=== PATIENT | female | born 1955 | race Two or more races ===

== ENCOUNTER 2016-11-06 21:15 | Inpatient (IN) | payer OTHER ==
--- NOTE | 2016-11-06 21:30 | PDOC ---
Rapid Medical Evaluation Time Seen by Provider: 11/06/16 21:27 Medical Evaluation: Allergies Allergy/AdvReac Type Severity Reaction Status Date / Time No Known Allergies Allergy Verified 01/01/16 15:12 11/06/16 21:27 I have performed a brief in-person evaluation of this patient. The patient presents with a chief complaint of: rt inguinal hernia, no fever, nausea, dysuria, difficulty w/ BM Pertinent physical exam findings: no skin discoloration noted I have ordered the following: ua The patient will be seen in the main ED.
[2016-11-06] MEDS ORDERED: morphine CARPU-JECT 4 MG/1 ML DISP.SYRIN IVPUSH ONE (21:59)
[2016-11-06] MEDS ORDERED: SODIUM CHLORIDE 1,000 ML IV STA (21:59)
[2016-11-06] MEDS ORDERED: morphine CARPU-JECT 4 MG/1 ML DISP.SYRIN ONE (22:16)
[2016-11-06 22:20] LABS: EOSINOPHIL 3.9 % (0-4.5); MCH 26.5 pg (25.7-33.7); MCHC 31.9 g/dl (32.0-36.0); MEAN CELL VOLUME 83.2 fl (80-96); MEAN PLT VOLUME 8.5 fl (7.5-11.1); NEUTROPHILS 43.8 % (42.8-82.8); PLATELET COUNT 339 K/MM3 (134-434); RDW 15.3 % (11.6-15.6); WHITE BLOOD COUNT 6.9 K/mm3 (4.0-10.0)
[2016-11-06 22:21] LABS: URINE APPEARANCE CLEAR; URINE BILIRUBIN NEGATIVE (NEGATIVE); URINE BLOOD NEGATIVE (NEGATIVE); URINE COLOR STRAW; URINE GLUCOSE (UA) NEGATIVE (NEGATIVE); URINE KETONE NEGATIVE (NEGATIVE); URINE LEUK ESTERASE NEGATIVE (NEGATIVE); URINE NITRITE NEGATIVE (NEGATIVE); URINE PROTEIN NEGATIVE (NEGATIVE); URINE UROBILINOGEN NEGATIVE E.U./dl (0.2-1.0)
--- NOTE | 2016-11-06 23:21 | PDOC ---
History of Present Illness - General History Source: Patient, Old Records Exam Limitations: No Limitations - History of Present Illness Initial Comments: 11/06/16 23:22 60-year-old female with past medical history of thyroid disorder, borderline diabetes presents with right lower quadrant pain. She reported that the pain is constant started 3 hours ago but no associated nausea, vomiting, diarrhea, dysuria. Differential includes acute appendicitis versus hernia versus cystitis. We'll obtain labs, CAT scan a urinalysis and reassess. <Андрей Schmidt - Last Filed: 11/07/16 01:16> - General History Source: Patient Exam Limitations: No Limitations <Art Dominique - Last Filed: 11/07/16 01:42> - General Chief Complaint: Pain Stated Complaint: ABD PAIN Time Seen by Provider: 11/06/16 21:27 Past History <Андрей Schmidt - Last Filed: 11/07/16 01:16> - Past Medical History Anemia: No Asthma: No Cancer: No Cardiac Disorders: No CVA: No COPD: No CHF: No Dementia: No Diabetes: Yes GI Disorders: No Disorders: No HTN: No Hypercholesterolemia: No Liver Disease: No Seizures: No Thyroid Disease: Yes (hypo) - Surgical History Abdominal Surgery: Yes (GASTRIC BYPASS) Appendectomy: No Cardiac Surgery: No Cholecystectomy: No Lung Surgery: No Neurologic Surgery: No Orthopedic Surgery: No - Immunization History Immunization Up to Date: Yes - Psycho/Social/Smoking Cessation Hx Anxiety: No Suicidal Ideation: No Smoking History: Never smoked Have you smoked in the past 12 months: No Information on smoking cessation initiated: No Hx Alcohol Use: No Drug/Substance Use Hx: No Substance Use Type: None Hx Substance Use Treatment: No <Art Dominique - Last Filed: 11/07/16 01:42> - Past Medical History Allergies/Adverse Reactions: Allergies Allergy/AdvReac Type Severity Reaction Status Date / Time No Known Allergies Allergy Verified 11/06/16 21:31 Home Medications: Ambulatory Orders Levothyroxine [Synthroid -] 25 mcg PO DAILY 01/01/16 Review of Systems - Review of Systems Able to Perform ROS?: Yes Comments:: 11/06/16 23:23 GENERAL/CONSTITUTIONAL: No fever or chills. No weakness. HEAD, EYES, EARS, NOSE AND THROAT: No change in vision. No ear pain or discharge. No sore throat. CARDIOVASCULAR: No chest pain or shortness of breath. RESPIRATORY: No cough, wheezing, or hemoptysis. GASTROINTESTINAL: No nausea, vomiting, diarrhea or constipation. GENITOURINARY: No dysuria, frequency, or change in urination. MUSCULOSKELETAL: No joint or muscle swelling or pain. No neck or back pain. SKIN: No rash NEUROLOGIC: No headache, vertigo, loss of consciousness, or change in strength/ sensation. ENDOCRINE: No increased thirst. No abnormal weight change. HEMATOLOGIC/LYMPHATIC: No anemia, easy bleeding, or history of blood clots. ALLERGIC/IMMUNOLOGIC: No hives or skin allergy. <Андрей Schmidt - Last Filed: 11/07/16 01:16> *Physical Exam - Vital Signs Last Vital Signs Temp Pulse Resp BP Pulse Ox 97.9 F 71 18 158/89 100 11/06/16 21:28 11/06/16 21:28 11/06/16 21:28 11/06/16 21:28 11/06/16 21:28 - Physical Exam Comments: 11/06/16 23:23 GENERAL: Awake, alert, and fully oriented, in no acute distress HEAD: No signs of trauma EYES: PERRLA, EOMI, sclera anicteric, conjunctiva clear ENT: Auricles normal inspection, hearing grossly normal, nares patent, oropharynx clear without exudates. Moist mucosa NECK: Normal ROM, supple, no lymphadenopathy, JVD, or masses LUNGS: Breath sounds equal, clear to auscultation bilaterally. No wheezes, and no crackles HEART: Regular rate and rhythm, normal S1 and S2, no murmurs, rubs or gallops ABDOMEN: (+) tenderness to the right lower quadrant. Soft, normoactive bowel sounds. No guarding, no rebound. No masses EXTREMITIES: Normal range of motion, no edema. No clubbing or cyanosis. No cords, erythema, or tenderness NEUROLOGICAL: Cranial nerves II through XII grossly intact. Normal speech, normal gait SKIN: Warm, Dry, normal turgor, no rashes or lesions noted. <Андрей Schmidt - Last Filed: 11/07/16 01:16> - Vital Signs Last Vital Signs Temp Pulse Resp BP Pulse Ox 97.9 F 71 18 158/89 100 11/06/16 21:28 11/06/16 21:28 11/06/16 21:28 11/06/16 21:28 11/06/16 21:28 <Art Dominique - Last Filed: 11/07/16 01:42> ED Treatment Course - LABORATORY CBC & Chemistry Diagram: 11/06/16 23:12 11/06/16 23:12 - ADDITIONAL ORDERS Additional order review: Laboratory Results 11/06/16 11/06/16 11/06/16 22:39 22:00 22:00 Sodium Cancelled Potassium Cancelled Chloride Cancelled Carbon Dioxide Cancelled Anion Gap Cancelled BUN Cancelled Creatinine Cancelled Creat Clearance w eGFR Cancelled Random Glucose Cancelled Calcium Cancelled Total Bilirubin Cancelled AST Cancelled ALT Cancelled Alkaline Phosphatase Cancelled Total Protein Cancelled Albumin Cancelled Lipase Cancelled Serum , Qual Cancelled Urine Color Straw Urine Appearance Clear Urine pH 6.0 Ur Specific [place] 1.013 Urine Protein Negative Urine Glucose (UA) Negative Urine Ketones Negative Urine Blood Negative Urine Nitrite Negative Urine Bilirubin Negative Urine Urobilinogen Negative Ur Leukocyte Esterase Negative 11/06/16 22:00 RBC 4.44 MCV 83.2 MCHC 31.9 L RDW 15.3 MPV 8.5 Neutrophils % 43.8 D Lymphocytes % 41.6 H D Monocytes % 9.7 Eosinophils % 3.9 D Basophils % 1.0 - RADIOLOGY Radiograph Interpretation: 11/07/16 01:[address] results reviewed. Positive for high grade small bowel obstruction. The source for the small bowel obstruction is the right inguinal hernia. - Medications Given in the ED: ED Medications Discontinued Medications Generic Name Dose Route Start Last Admin Trade Name Freq PRN Reason Stop Dose Admin Sodium Chloride 1,000 mls @ 1,000 mls/hr 11/06/16 21:59 11/06/16 22:26 Normal Saline - IV 11/06/16 22:58 1,000 mls/hr ASDIR STA Administration Morphine Sulfate 4 mg 11/06/16 21:59 11/06/16 22:26 Morphine Injection - IVPUSH 11/06/16 22:00 4 mg ONCE ONE Administration <Андрей Schmidt - Last Filed: 11/07/16 01:16> - LABORATORY CBC & Chemistry Diagram: 11/06/16 23:12 11/06/16 23:12 - ADDITIONAL ORDERS Additional order review: Laboratory Results 11/06/16 11/06/16 11/06/16 22:39 22:00 22:00 Sodium Cancelled Potassium Cancelled Chloride Cancelled Carbon Dioxide Cancelled Anion Gap Cancelled BUN Cancelled Creatinine Cancelled Creat Clearance w eGFR Cancelled Random Glucose Cancelled Calcium Cancelled Total Bilirubin Cancelled AST Cancelled ALT Cancelled Alkaline Phosphatase Cancelled Total Protein Cancelled Albumin Cancelled Lipase Cancelled Serum , Qual Cancelled Urine Color Straw Urine Appearance Clear Urine pH 6.0 Ur Specific [place] 1.013 Urine Protein Negative Urine Glucose (UA) Negative Urine Ketones Negative Urine Blood Negative Urine Nitrite Negative Urine Bilirubin Negative Urine Urobilinogen Negative Ur Leukocyte Esterase Negative 11/06/16 22:00 RBC 4.44 MCV 83.2 MCHC 31.9 L RDW 15.3 MPV 8.5 Neutrophils % 43.8 D Lymphocytes % 41.6 H D Monocytes % 9.7 Eosinophils % 3.9 D Basophils % 1.0 - RADIOLOGY Radiology Studies Ordered: Category Date Time Status ABDOMEN & PELVIS CT WITH CONTR [CT] Stat CT Scan 11/06/16 21:59 Ordered - Medications Given in the ED: ED Medications Discontinued Medications Generic Name Dose Route Start Last Admin Trade Name Freq PRN Reason Stop Dose Admin Sodium Chloride 1,000 mls @ 1,000 mls/hr 11/06/16 21:59 11/06/16 22:26 Normal Saline - IV 11/06/16 22:58 1,000 mls/hr ASDIR STA Administration Morphine Sulfate 4 mg 11/06/16 21:59 11/06/16 22:26 Morphine Injection - IVPUSH 11/06/16 22:00 4 mg ONCE ONE Administration <Art Dominique - Last Filed: 11/07/16 01:42> Medical Decision Making - Medical Decision Making 11/06/16 23:19 A portion of this note was documented by scribe services under my direction. I have reviewed the details of the note, within reason, and agree with the documentation with the following case summary and management plan written by me. Patient treated in the ED. Nursing notes are reviewed and incorporated into the medical decision-making. Vital signs reviewed. Peripheral IV access obtained by the nurse, laboratory studies are drawn and sent, reviewed and interpreted by myself. Vital Signs Temp Pulse Resp BP Pulse Ox 97.9 F 71 18 158/89 100 11/06/16 21:28 03/02/17 21:28 11/06/16 21:28 11/06/16 21:28 11/06/16 21:28 60-year-old female with past medical history of thyroid disorder, borderline diabetes presents with right lower quadrant pain. She reported that the pain is constant started 3 hours ago but no associated nausea, vomiting, diarrhea, dysuria. Differential includes acute appendicitis versus hernia versus cystitis. We'll obtain labs, CAT scan a urinalysis and reassess. 11/07/16 01:10 CBC, BMP 11/06/16 23:12 11/06/16 23:12 CMP Sodium 141 mmol/L (136-145) 11/06/16 23:12 Potassium 4.3 mmol/L (3.5-5.1) 11/06/16 23:12 Chloride 105 mmol/L (98-107) 11/06/16 23:12 Carbon Dioxide 26 mmol/L (21-32) 11/06/16 23:12 Anion Gap 10 (8-16) 11/06/16 23:12 BUN 19 mg/dL (7-18) H 11/06/16 23:12 Creatinine 0.8 mg/dL (0.55-1.02) D 11/06/16 23:12 Creat Clearance w eGFR > 60 (>60) 11/06/16 23:12 Random Glucose 90 mg/dL (74-106) 11/06/16 23:12 Calcium 9.0 mg/dL (8.5-10.1) 11/06/16 23:12 Total Bilirubin 0.5 mg/dL (0.2-1.0) 11/06/16 23:12 AST 49 U/L (15-37) H D 11/06/16 23:12 ALT 34 U/L (12-78) D 11/06/16 23:12 Alkaline Phosphatase 115 U/L (45-117) 11/06/16 23:12 Total Protein 6.9 g/dl (6.4-8.2) 11/06/16 23:12 Albumin 3.9 g/dl (3.4-5.0) 11/06/16 23:12 Lipase 191 U/L (73-393) 11/06/16 23:12 Serum , Qual Negative 11/07/16 00:08 Urine Test Results Urine Color Straw 11/06/16 22:00 Urine Appearance Clear 11/06/16 22:00 Urine pH 6.0 (5.0-8.0) 11/06/16 22:00 Ur Specific [place] 1.013 (1.001-1.035) 11/06/16 22:00 Urine Protein Negative (NEGATIVE) 11/06/16 22:00 Urine Glucose (UA) Negative (NEGATIVE) 11/06/16 22:00 Urine Ketones Negative (NEGATIVE) 11/06/16 22:00 Urine Blood Negative (NEGATIVE) 11/06/16 22:00 Urine Nitrite Negative (NEGATIVE) 11/06/16 22:00 Urine Bilirubin Negative (NEGATIVE) 11/06/16 22:00 Ur Leukocyte Esterase Negative (NEGATIVE) 11/06/16 22:00 CT results reviewed. Positive for high grade small bowel obstruction. The source for the small bowel obstruction is the right inguinal hernia. Patient reports that she has a history of right inguinal hernia that she would reduce on her own at home. I had attempted a reduction. On my first attempt, it feels that the inguinal hernia was reduced. Given the CT scan however, will observe the patient in the hospital. 11/07/16 01:[address] Varghese. Pt accepted for med/surg observation. <Art Dominique - Last Filed: 11/07/16 01:42> *DC/Admit/Observation/Transfer - Attestations Scribe Attestion: 11/06/16 23:23 Documentation prepared by Андрей Schmidt, acting as medical dir for Art Dominique MD. <Андрей Schmidt - Last Filed: 11/07/16 01:16> - Discharge Dispostion Admit: Yes <Art Dominique - Last Filed: 11/07/16 01:42> Diagnosis at time of Disposition: Inguinal hernia of right side with obstruction - Discharge Dispostion Condition at time of disposition: Stable - Referrals Referrals: Aron Culp [Primary Care Provider] -
[2016-11-06 23:24] LABS: BASOPHIL 0.6 % (0-2.0); EOSINOPHIL 2.8 % (0-4.5); MCH 26.8 pg (25.7-33.7); MCHC 32.3 g/dl (32.0-36.0); MEAN CELL VOLUME 82.8 fl (80-96); MEAN PLT VOLUME 8.3 fl (7.5-11.1); NEUTROPHILS 53.9 % (42.8-82.8); PLATELET COUNT 292 K/MM3 (134-434); RDW 14.7 % (11.6-15.6); WHITE BLOOD COUNT 7.3 K/mm3 (4.0-10.0)
[2016-11-07 00:03] LABS: ALBUMIN 3.9 g/dl (3.4-5.0); ALK PHOS 115 U/L (45-117); ANION GAP 10 (8-16); BILIRUBIN,TOTAL 0.5 mg/dL (0.2-1.0); CO2 26 mmol/L (21-32); CREATININE 0.8 mg/dL (0.55-1.02); GLUCOSE,RANDOM 90 mg/dL (74-106); SGOT/AST 49 U/L (15-37); SGPT/ALT 34 U/L (12-78); TOT PROT 6.9 g/dl (6.4-8.2)
[2016-11-07] MEDS ORDERED: morphine CARPU-JECT 4 MG/1 ML DISP.SYRIN IVPUSH ONE (01:06)
[2016-11-07] MEDS ORDERED: morphine CARPU-JECT 4 MG/1 ML DISP.SYRIN ONE (01:11)
--- NOTE | 2016-11-07 02:13 | PN ---
<Kaitlyn Varghese - Last Filed: 11/07/16 02:11> Teaching Attending Note Name of Resident: Dino Hammond <Aida Yates - Last Filed: 11/07/16 04:53> Teaching Attending Note ATTENDING PHYSICIAN STATEMENT I saw and evaluated the patient. I reviewed the resident's note and discussed the case with the resident. I agree with the resident's findings and plan as documented. SUBJECTIVE: The patient is a 60 yo F with a PMHx of thyroid disorder, borderline diabetes, gastric bypass who presents with RLQ pain s/p inguinal hernia. Patient reports her abdominal pain has occurred multiple times in the past and is able to reduce it. However, today upon leaving work, she attempted to reduce it due to constant pain in the area. Patient reported her hernia was irreducible. Patient presented to the ED for further evaluation. On evaluation, Abdomen CT revealed R incarcerated hernia which was manipulated and reduced by ED physician. OBJECTIVE: Physical Last Vital Signs Temp Pulse Resp BP Pulse Ox 97.9 F 78 17 137/74 100 11/06/16 21:28 11/07/16 01:33 11/07/16 01:33 11/07/16 01:33 11/07/16 01:33 GENERAL: Awake, alert, and fully oriented, in no acute distress HEENT: Atraumatic. PERRLA, EOMI. Moist mucosa. No JVD LUNGS: No distress, speaks full sentences, clear to auscultation bilaterally HEART: Regular rate and rhythm, normal S1 and S2, no murmurs, rubs or gallops, peripheral pulses normal and equal bilaterally. ABDOMEN: +Obese. +Inguinal hernia s/p reduction. Soft, nontender, normoactive bowel sounds. No guarding, no rebound. EXTREMITIES: Normal inspection, Normal range of motion, no edema. No clubbing or cyanosis. NEUROLOGICAL: Cranial nerves II through XII grossly intact. Normal speech, no focal sensorimotor deficits SKIN: Warm, Dry, normal turgor, no rashes or lesions noted. CBCD WBC 7.3 K/mm3 (4.0-10.0) 11/06/16 23:12 RBC 4.32 M/mm3 (3.60-5.2) 11/06/16 23:12 Hgb 11.6 GM/dL (10.7-15.3) 11/06/16 23:12 Hct 35.8 % (32.4-45.2) 11/06/16 23:12 MCV 82.8 fl (80-96) 11/06/16 23:12 MCHC 32.3 g/dl (32.0-36.0) 11/06/16 23:12 RDW 14.7 % (11.6-15.6) 11/06/16 23:12 Plt Count 292 K/MM3 (134-434) 11/06/16 23:12 MPV 8.3 fl (7.5-11.1) 11/06/16 23:12 CMP Sodium 141 mmol/L (136-145) 11/06/16 23:12 Potassium 4.3 mmol/L (3.5-5.1) 11/06/16 23:12 Chloride 105 mmol/L (98-107) 11/06/16 23:12 Carbon Dioxide 26 mmol/L (21-32) 11/06/16 23:12 Anion Gap 10 (8-16) 11/06/16 23:12 BUN 19 mg/dL (7-18) H 11/06/16 23:12 Creatinine 0.8 mg/dL (0.55-1.02) D 11/06/16 23:12 Creat Clearance w eGFR > 60 (>60) 11/06/16 23:12 Calcium 9.0 mg/dL (8.5-10.1) 11/06/16 23:12 Total Bilirubin 0.5 mg/dL (0.2-1.0) 11/06/16 23:12 AST 49 U/L (15-37) H D 11/06/16 23:12 ALT 34 U/L (12-78) D 11/06/16 23:12 Alkaline Phosphatase 115 U/L (45-117) 11/06/16 23:12 Total Protein 6.9 g/dl (6.4-8.2) 11/06/16 23:12 Albumin 3.9 g/dl (3.4-5.0) 11/06/16 23:12 Imaging: Abd/Pelvis CT Impression: Positive for high grade small bowel obstruction. The source for the small bowel obstruction is a right inguinal hernia. There is some fluid in the hernia sac and therefore it is possible that the hernia is strangulated/ entrapped. Normal appendix visualized. Negative for diverticulitis or colitis. Normal liver. The gallbladder is distended from not eating?). Common bile duct is similarly mildly dilated. Normal spleen. Normal kidneys. Normal adrenal glands. Normal pancreas. Hiatal hernia. Gastric surgery. ASSESSMENT AND PLAN: Lactic Acid-- ordered and pending Surgery consulted Admitted to Med Surg- Obs Documentation prepared by Aida Yates, acting as medical claims examiner for Kaitlyn Varghese MD
[2016-11-07] MEDS ORDERED: KETOROLAC TROMETHAMINE 15 MG/ML VIAL IVPUSH PRN (02:21)
--- NOTE | 2016-11-07 02:26 | HP ---
CHIEF COMPLAINT: Abdominal pain PCP:Aron Culp HISTORY OF PRESENT ILLNESS: 60 yo F with PMHx of thyroid disorder, borderline diabetes presents with right lower quadrant pain. She reported a three hour history of constant 10/10 RLQ abdominal pain from chronic hernia that was irreducible . She states that she has had the hernia almost all her life and had always been able to reduce it on her own, however recently it has become more difficult to reduce and much more painful. Denies associated nausea, vomiting, diarrhea, dysuria. Denies CP, ORTEGA, SOB, fever, palpitations,or recent illness. ER course was notable for: (1)Abdominal CT showed -Positive for high grade small bowel obstruction. (2)Hernia reduced in ER (3)CBC wnl - no leukocytosis. Recent Travel: Denies PAST MEDICAL HISTORY: Hypothyroidism, borderline DM type 2 PAST SURGICAL HISTORY: Gastric bypass 2008 Social History: Smoking:never smoked Alcohol:denies Drugs: denies Family History: Allergies No Known Allergies Allergy (Verified 11/06/16 21:31) HOME MEDICATIONS: Home Medications Medication Instructions Recorded Levothyroxine [Synthroid -] 25 mcg PO DAILY 01/01/16 REVIEW OF SYSTEMS CONSTITUTIONAL: Absent: fever, chills, diaphoresis, generalized weakness, malaise, loss of appetite, weight change HEENT: Absent: rhinorrhea, nasal congestion, throat pain, throat swelling, difficulty swallowing, mouth swelling, ear pain, eye pain, visual changes CARDIOVASCULAR: Absent: chest pain, syncope, palpitations, irregular heart rate, lightheadedness , peripheral edema RESPIRATORY: Absent: cough, shortness of breath, dyspnea with exertion, orthopnea, wheezing, stridor, hemoptysis GASTROINTESTINAL:(+)abdominal pain Absent: , abdominal distension, nausea, vomiting, diarrhea, constipation, melena , hematochezia GENITOURINARY: Absent: dysuria, frequency, urgency, hesitancy, hematuria, flank pain, genital pain MUSCULOSKELETAL: Absent: myalgia, arthralgia, joint swelling, back pain, neck pain SKIN: Absent: rash, itching, pallor HEMATOLOGIC/IMMUNOLOGIC: Absent: easy bleeding, easy bruising, lymphadenopathy, frequent infections ENDOCRINE: Absent: unexplained weight gain, unexplained weight loss, heat intolerance, cold intolerance NEUROLOGIC: Absent: headache, focal weakness or paresthesias, dizziness, unsteady gait, seizure, mental status changes, bladder or bowel incontinence PSYCHIATRIC: Absent: anxiety, depression, suicidal or homicidal ideation, hallucinations. PHYSICAL EXAMINATION GENERAL: French speaking only.Awake, alert, and fully oriented, in no acute distress. HEAD: Normal with no signs of trauma. EYES: Pupils equal, round and reactive to light, extraocular movements intact, sclera anicteric, conjunctiva clear. No lid lag. EARS, NOSE, THROAT: Ears normal, nares patent, oropharynx clear without exudates. Moist mucous membranes. NECK: Normal range of motion, supple without lymphadenopathy, JVD, or masses. LUNGS: Breath sounds equal, clear to auscultation bilaterally. No wheezes, and no crackles. No accessory muscle use. HEART: Regular rate and rhythm, normal S1 and S2 without murmur, rub or gallop. ABDOMEN: Soft, obese, nontender, not distended, normoactive bowel sounds, no guarding, no rebound, no masses.Reducible Right Inguinal Hernia. No hepatomegaly or splenomegaly. MUSCULOSKELETAL: Normal range of motion at all joints. No bony deformities or tenderness. No CVA tenderness. UPPER EXTREMITIES: 2+ pulses, warm, well-perfused. No cyanosis. No clubbing. Cap refill <2 seconds. No peripheral edema. LOWER EXTREMITIES: 2+ pulses, warm, well-perfused. No calf tenderness. No peripheral edema. NEUROLOGICAL: Cranial nerves II-XII intact. Normal speech. gait not observed. PSYCHIATRIC: Cooperative. Good eye contact. Appropriate mood and affect. SKIN: Warm, dry, normal turgor, no rashes or lesions noted. Laboratory Results - last 24 hr 11/06/16 11/06/16 11/06/16 22:00 22:00 22:00 WBC 6.9 RBC 4.44 Hgb 11.8 Hct 36.9 MCV 83.2 MCHC 31.9 L RDW 15.3 Plt Count 339 D MPV 8.5 Neutrophils % 43.8 D Lymphocytes % 41.6 H D Monocytes % 9.7 Eosinophils % 3.9 D Basophils % 1.0 Sodium Cancelled Potassium Cancelled Chloride Cancelled Carbon Dioxide Cancelled Anion Gap Cancelled BUN Cancelled Creatinine Cancelled Creat Clearance w eGFR Cancelled POC Glucometer Random Glucose Cancelled Lactic Acid Calcium Cancelled Total Bilirubin Cancelled AST Cancelled ALT Cancelled Alkaline Phosphatase Cancelled Total Protein Cancelled Albumin Cancelled Lipase Cancelled Serum , Qual Urine Color Straw Urine Appearance Clear Urine pH 6.0 Ur Specific [place] 1.013 Urine Protein Negative Urine Glucose (UA) Negative Urine Ketones Negative Urine Blood Negative Urine Nitrite Negative Urine Bilirubin Negative Urine Urobilinogen Negative Ur Leukocyte Esterase Negative 11/06/16 11/06/16 11/06/16 22:39 23:12 23:12 WBC 7.3 RBC 4.32 Hgb 11.6 Hct 35.8 MCV 82.8 MCHC 32.3 RDW 14.7 Plt Count 292 MPV 8.3 Neutrophils % 53.9 D Lymphocytes % 33.5 Monocytes % 9.2 Eosinophils % 2.8 Basophils % 0.6 Sodium 141 Potassium 4.3 Chloride 105 Carbon Dioxide 26 Anion Gap 10 BUN 19 H Creatinine 0.8 D Creat Clearance w eGFR > 60 POC Glucometer Random Glucose 90 Lactic Acid Calcium 9.0 Total Bilirubin 0.5 AST 49 H D ALT 34 D Alkaline Phosphatase 115 Total Protein 6.9 Albumin 3.9 Lipase 191 Serum , Qual Cancelled Urine Color Urine Appearance Urine pH Ur Specific [place] Urine Protein Urine Glucose (UA) Urine Ketones Urine Blood Urine Nitrite Urine Bilirubin Urine Urobilinogen Ur Leukocyte Esterase 11/07/16 11/07/16 11/07/16 00:08 01:59 05:47 WBC RBC Hgb Hct MCV MCHC RDW Plt Count MPV Neutrophils % Lymphocytes % Monocytes % Eosinophils % Basophils % Sodium Potassium Chloride Carbon Dioxide Anion Gap BUN Creatinine Creat Clearance w eGFR POC Glucometer 83 Random Glucose Lactic Acid 1.352 Calcium Total Bilirubin AST ALT Alkaline Phosphatase Total Protein Albumin Lipase Serum , Qual Negative Urine Color Urine Appearance Urine pH Ur Specific [place] Urine Protein Urine Glucose (UA) Urine Ketones Urine Blood Urine Nitrite Urine Bilirubin Urine Urobilinogen Ur Leukocyte Esterase ASSESSMENT/PLAN: 60 yo F with PMHx of thyroid disorder, borderline diabetes admitted for inguinal hernia of right side with obstruction. Problem List - Problem (1) Inguinal hernia of right side with obstruction Assessment/Plan: * Surgery consult Dr. Centeno * NPO except med * CXR and EKG for clearance * PTT PT/INR for AM * Pain control with Ketoralac 15mg IV Q6H * repeat AM CBC and CMP (2) Borderline diabetes Assessment/Plan: * HgbA1C * BGM ACBK * RISS * NPO for now -- ADA diet once advanced. (3) Hypothyroidism Assessment/Plan: * Continue Synthroid 25mcg PO daily * TSH ordered. (4) DVT prophylaxis Assessment/Plan: * SCD bilat LE * AC held for possible surgical intervention. Visit type - Emergency Visit Emergency Visit: Yes ED Registration Date: 11/07/16 Care time: The patient presented to the Emergency Department on the above date and was hospitalized for further evaluation of their emergent condition. - New Patient This patient is new to me today: Yes Date on this admission: 11/07/16 - Critical Care Critical Care patient: No
[2016-11-07] MEDS ORDERED: SODIUM CHLORIDE 1,000 ML IV SCH (03:00)
[2016-11-07 03:32] VITALS: BMI 31.6
[2016-11-07] MEDS ORDERED: INSULIN SLIDING SCALE (NOVOLOG) 1 VIAL SQ SCH (07:00)
[2016-11-07] MEDS ORDERED: LEVOTHYROXINE NA 25 MCG TABLET (FP) PO SCH (07:00)
[2016-11-07 07:41] LABS: BASOPHIL 0.5 % (0-2.0); EOSINOPHIL 3.1 % (0-4.5); MCHC 32.1 g/dl (32.0-36.0); MEAN PLT VOLUME 8.7 fl (7.5-11.1); NEUTROPHILS 54.6 % (42.8-82.8); PLATELET COUNT 272 K/MM3 (134-434); RDW 14.8 % (11.6-15.6); WHITE BLOOD COUNT 7.2 K/mm3 (4.0-10.0)
[2016-11-07 07:56] LABS: INR 1.09 (0.82-1.09)
[2016-11-07 07:58] LABS: ACTIVATED PTT 29.1 SECONDS (26.9-34.4)
[2016-11-07 08:13] VITALS: BP 126/65; TEMP 97.7
[2016-11-07 08:35] LABS: ALBUMIN 3.3 g/dl (3.4-5.0); ANION GAP 7 (8-16); CALCIUM 8.1 mg/dL (8.5-10.1); CO2 28 mmol/L (21-32); CREATININE 0.7 mg/dL (0.55-1.02); GLUCOSE,RANDOM 82 mg/dL (74-106); MAGNESIUM 2.1 mg/dL (1.8-2.4); PHOSPHOROUS 4.2 mg/dL (2.5-4.9); SGOT/AST 45 U/L (15-37); SGPT/ALT 32 U/L (12-78)
[2016-11-07 08:45] LABS: ALK PHOS 105 U/L (45-117); BILIRUBIN,TOTAL 0.6 mg/dL (0.2-1.0); THYROID STIMULATING HORMONE 4.09 uIU/ml (0.358-3.74); TOT PROT 5.9 g/dl (6.4-8.2)
--- NOTE | 2016-11-07 10:49 | EKG ---
Test Reason : Blood Pressure : / mmHG Vent. Rate : 057 BPM Atrial Rate : 057 BPM P-R Int : 150 ms QRS Dur : 086 ms QT Int : 420 ms P-R-T Axes : 062 001 020 degrees QTc Int : 408 ms SINUS BRADYCARDIA OTHERWISE NORMAL ECG WHEN COMPARED WITH ECG OF 02-JAN-2012 10:40, NO SIGNIFICANT CHANGE WAS FOUND Confirmed by JAY SWIFT MD ([id number]) on 11/07/2016 10:49:41 AM Referred By: MARK BAKER Confirmed By:JAY SWIFT MD
--- NOTE | 2016-11-07 12:43 | PN ---
<Lance Lacey - Last Filed: 11/07/16 13:34> Physical Exam: SUBJECTIVE: Patient seen and examined at bedside. Currently feels well and has no abd pain, CP, SOB, N/V. History translated by daughter as pt is Ecuadorean speaking only. Pt states she feels that when she stands for extended periods of time she feels as she will herniate again. The herniations have become more frequent progressively and are usually reducible but last one was not reducible. Pt felt when she walked to bathroom in hospital room as if she was going to herniate again. OBJECTIVE: Vital Signs Temperature 97.7 F 11/07/16 08:13 Pulse Rate 61 11/07/16 08:13 Respiratory Rate 18 11/07/16 08:13 Blood Pressure 126/65 11/07/16 08:13 O2 Sat by Pulse Oximetry (%) 100 11/07/16 01:51 GENERAL: The patient is awake, alert, and fully oriented, in no acute distress. HEAD: Normal with no signs of trauma. EYES: extraocular movements intact, sclera anicteric, conjunctiva clear. No ptosis. ENT: Ears normal, nares patent,moist mucous membranes. NECK: Trachea midline, full range of motion, supple. LUNGS: Breath sounds equal, clear to auscultation bilaterally, no wheezes, no crackles, no accessory muscle use. HEART: Regular rate and rhythm, S1, S2 without murmur, rub or gallop. ABDOMEN: Soft, nontender, nondistended, normoactive bowel sounds, no guarding, no rebound, no hepatosplenomegaly, no masses. No herniations. EXTREMITIES: 2+ pulses, warm, well-perfused, no edema. NEUROLOGICAL: Normal speech, gait not observed. PSYCH: Normal mood, normal affect. SKIN: Warm, dry, normal turgor, no rashes or lesions noted Laboratory Results - last 24 hr 11/07/16 11/07/16 11/07/16 05:47 06:35 06:35 WBC 7.2 RBC 3.95 Hgb 10.7 Hct 33.2 MCV 84.0 MCHC 32.1 RDW 14.8 Plt Count 272 MPV 8.7 Neutrophils % 54.6 Lymphocytes % 32.2 Monocytes % 9.6 Eosinophils % 3.1 Basophils % 0.5 INR 1.09 PTT (Actin FS) 29.1 Sodium Potassium Chloride Carbon Dioxide Anion Gap BUN Creatinine Creat Clearance w eGFR POC Glucometer 83 Random Glucose Hemoglobin A1c % Calcium Phosphorus Magnesium Total Bilirubin AST ALT Alkaline Phosphatase Total Protein Albumin TSH 11/07/16 11/07/16 06:35 06:35 WBC RBC Hgb Hct MCV MCHC RDW Plt Count MPV Neutrophils % Lymphocytes % Monocytes % Eosinophils % Basophils % INR PTT (Actin FS) Sodium 143 Potassium 4.5 Chloride 108 H Carbon Dioxide 28 Anion Gap 7 L BUN 18 Creatinine 0.7 Creat Clearance w eGFR > 60 POC Glucometer Random Glucose 82 Hemoglobin A1c % 5.9 Calcium 8.1 L Phosphorus 4.2 Magnesium 2.1 Total Bilirubin 0.6 AST 45 H ALT 32 Alkaline Phosphatase 105 Total Protein 5.9 L Albumin 3.3 L TSH 4.09 H Active Medications Generic Name Dose Route Start Last Admin Trade Name Freq PRN Reason Stop Dose Admin Sodium Chloride 1,000 mls @ 83 mls/hr 11/07/16 03:00 11/07/16 04:11 Normal Saline - IV 83 mls/hr ASDIR [facility] Administration Insulin Aspart 1 vial 11/07/16 07:00 11/07/16 06:01 Novolog Vial Sliding Scale - SQ Not Given BIDAC [facility] Protocol Ketorolac Tromethamine 15 mg 11/07/16 02:21 Toradol Injection - IVPUSH 11/12/16 02:20 Q6H PRN PAIN Levothyroxine Sodium 25 mcg 11/07/16 07:00 11/07/16 06:43 Synthroid - PO 25 mcg DAILY@0700 [facility] Administration ASSESSMENT/PLAN: 60 y/o w/PMH of hypothyroid, borderline diabetes presented to ER with non- reducible R inguinal hernia. Hernia was reduced in ER by physician. -R inguinal hernia -Currently reduced, no abd pain, normoactive BS in all 4 quadrants. -Surgery consulted -Pt feels as though she will herniate when she stands for extended periods of time. -pain control with ketorolac iv q6h prn for pain -Hypothyroidism -TSH 4 -c/w synthroid 25 mcg po qd -Borderline diabetes -A1C 5.9 -FEN -c/w NS @ 83 ml/hr -electrolytes wnl -NPO for now, awating surgerical consult -Dispo: Monitor for now, awaiting surgical consult. Problem List - Problems (1) Borderline diabetes Code(s): R73.09 - OTHER ABNORMAL GLUCOSE (2) Hypothyroidism Code(s): E03.9 - HYPOTHYROIDISM, UNSPECIFIED Qualifiers: Hypothyroidism type: acquired Qualified Code(s): E03.9 - Hypothyroidism, unspecified (3) Inguinal hernia of right side with obstruction Code(s): K40.30 - UNIL INGUINAL HERNIA, W OBST, W/O GANGR, NOT SPCF RECUR (4) Abdominal pain Code(s): R10.9 - UNSPECIFIED ABDOMINAL PAIN (5) Inguinal hernia Code(s): K40.90 - UNIL INGUINAL HERNIA, W/O OBST OR GANGR, NOT SPCF RECUR Visit type - Emergency Visit Emergency Visit: Yes ED Registration Date: 11/07/16 Care time: The patient presented to the Emergency Department on the above date and was hospitalized for further evaluation of their emergent condition. - New Patient This patient is new to me today: Yes Date on this admission: 11/07/16 - Critical Care Critical Care patient: No <Azael Moody - Last Filed: 11/07/16 14:37> Physical Exam: ATTENDING PHYSICIAN STATEMENT I saw and evaluated the patient. I reviewed the resident's note and discussed the case with the resident. I agree with the resident's findings and plan as documented. SUBJECTIVE: seen and evaluated at the bedside OBJECTIVE: resting comfortably in no distress; normal bowel sounds, no tenerness, no hernia palpable while in prone position ASSESSMENT AND PLAN: 60 year old woman with Hypothyroidism, borderline DM type 2 admitted for inguinal hernia Hernia -pt states that yesterday she could not reduce hernia like she normally does -was reduced in ED by ED attending but pt states that when she gets up to walk around the hernia returns -follow up gen surgery consult as pt may finally consider having surgical correction
[2016-11-07 14:02] VITALS: PULSE 56
[2016-11-07] MEDS ORDERED: LORATADINE 10 MG TABLET PO SCH (15:15)
--- NOTE | 2016-11-07 16:18 | DS ---
Physical Exam: SUBJECTIVE: Patient seen and examined at bedside. Pt is hungry, has no abd pain , is feeling well. OBJECTIVE: Vital Signs Temperature 97.7 F 11/07/16 13:59 Pulse Rate 56 L 11/07/16 13:59 Respiratory Rate 20 11/07/16 13:59 Blood Pressure 126/65 11/07/16 13:59 O2 Sat by Pulse Oximetry (%) 100 11/07/16 01:51 PHYSICAL EXAM GENERAL: The patient is awake, alert, and fully oriented, in no acute distress. HEAD: Normal with no signs of trauma. EYES: extraocular movements intact, sclera anicteric, conjunctiva clear. No ptosis. ENT: Ears normal, nares patent,moist mucous membranes. NECK: Trachea midline, full range of motion, supple. LUNGS: Breath sounds equal, clear to auscultation bilaterally, no wheezes, no crackles, no accessory muscle use. HEART: Regular rate and rhythm, S1, S2 without murmur, rub or gallop. ABDOMEN: Soft, nontender, nondistended, normoactive bowel sounds, no guarding, no rebound, no hepatosplenomegaly, no masses. No herniations. EXTREMITIES: 2+ pulses, warm, well-perfused, no edema. NEUROLOGICAL: Normal speech, gait not observed. PSYCH: Normal mood, normal affect. SKIN: Warm, dry, normal turgor, no rashes or lesions noted LABS Laboratory Results - last 24 hr 11/07/16 11/07/16 11/07/16 05:47 06:35 06:35 WBC 7.2 RBC 3.95 Hgb 10.7 Hct 33.2 MCV 84.0 MCHC 32.1 RDW 14.8 Plt Count 272 MPV 8.7 Neutrophils % 54.6 Lymphocytes % 32.2 Monocytes % 9.6 Eosinophils % 3.1 Basophils % 0.5 INR 1.09 PTT (Actin FS) 29.1 Sodium Potassium Chloride Carbon Dioxide Anion Gap BUN Creatinine Creat Clearance w eGFR POC Glucometer 83 Random Glucose Hemoglobin A1c % Calcium Phosphorus Magnesium Total Bilirubin AST ALT Alkaline Phosphatase Total Protein Albumin TSH 11/07/16 11/07/16 06:35 06:35 WBC RBC Hgb Hct MCV MCHC RDW Plt Count MPV Neutrophils % Lymphocytes % Monocytes % Eosinophils % Basophils % INR PTT (Actin FS) Sodium 143 Potassium 4.5 Chloride 108 H Carbon Dioxide 28 Anion Gap 7 L BUN 18 Creatinine 0.7 Creat Clearance w eGFR > 60 POC Glucometer Random Glucose 82 Hemoglobin A1c % 5.9 Calcium 8.1 L Phosphorus 4.2 Magnesium 2.1 Total Bilirubin 0.6 AST 45 H ALT 32 Alkaline Phosphatase 105 Total Protein 5.9 L Albumin 3.3 L TSH 4.09 H HOSPITAL COURSE: Date of Admission:11/07/16 Date of Discharge: 11/07/16 60 y/o w/PMH of hypothyroid, borderline diabetes presented to ER with non- reducible R inguinal hernia. Hernia was reduced in ER by Dr. Dominique. CT was done before it was reduced which showed high grade SBO. After being reduced pt had no complaints and no abd pain. Normoactive bowel sounds present in all 4 quadrants. Pt was seen by Dr. Centeno who recommended pt wear a belt and to see Dr. Centeno as an outpatient to surgery for hernia electively. Minutes to complete discharge: 38 Discharge Summary Reason For Visit: INGUINAL HERNIA OF RT SIDE W/OBSTRUCTION Current Active Problems Borderline diabetes (Acute) DVT prophylaxis (Acute) Hypothyroidism (Acute) Inguinal hernia of right side with obstruction (Acute) - Instructions Referrals: Aron Culp [Primary Care Provider] - - Home Medications Comprehensive Discharge Medication List: Ambulatory Orders Levothyroxine [Synthroid -] 50 mcg PO DAILY 01/01/16 Problem List - Problems (1) Borderline diabetes Code(s): R73.09 - OTHER ABNORMAL GLUCOSE (2) Hypothyroidism Code(s): E03.9 - HYPOTHYROIDISM, UNSPECIFIED Qualifiers: Hypothyroidism type: acquired Qualified Code(s): E03.9 - Hypothyroidism, unspecified (3) Inguinal hernia of right side with obstruction Code(s): K40.30 - UNIL INGUINAL HERNIA, W OBST, W/O GANGR, NOT SPCF RECUR (4) Abdominal pain Code(s): R10.9 - UNSPECIFIED ABDOMINAL PAIN (5) Inguinal hernia Code(s): K40.90 - UNIL INGUINAL HERNIA, W/O OBST OR GANGR, NOT SPCF RECUR This patient is new to me today: Yes Date on this admission: 11/07/16 Emergency Visit: Yes ED Registration Date: 11/07/16 Care time: The patient presented to the Emergency Department on the above date and was hospitalized for further evaluation of their emergent condition. Critical Care patient: No - Discharge Referral Referred to [facility] No
--- NOTE | 2016-11-07 16:36 | CONSULT ---
Consult Consult Specialty:: Surgery Reason for Consultation:: Right inguinal hernia - History of Present Illness History of Present Illness: 60 female with long standing right inguinal hernia Has been able to reduce the hernia herself at home for years Presented with abdominal pain Could not self reduce the hernia Currently pain resolved Hernia now reduced - History Source History Provided By: Patient, Family Member, Medical Record - Past Medical History ...LMP: 12/17/11 - Alcohol/Substance Use Hx Alcohol Use: No - Smoking History Smoking history: Never smoked Have you smoked in the past 12 months: No Home Medications - Allergies Allergies/Adverse Reactions: Allergies Allergy/AdvReac Type Severity Reaction Status Date / Time No Known Allergies Allergy Verified 11/06/16 21:31 - Home Medications Home Medications: Ambulatory Orders Levothyroxine [Synthroid -] 50 mcg PO DAILY 01/01/16 Family Disease History - Family Disease History Family History: Unremarkable Review of Systems - Review of Systems Constitutional: denies: Chills, Fever Neck: reports: No Symptoms Cardiovascular: denies: Chest Pain Respiratory: denies: Cough Gastrointestinal: denies: Abdominal Pain, Nausea, Vomiting Neurological: denies: Change in LOC Pain Intensity: 1 Physical Exam Vital Signs: Vital Signs Temperature 97.7 F 11/07/16 13:59 Pulse Rate 56 L 11/07/16 13:59 Respiratory Rate 20 11/07/16 13:59 Blood Pressure 126/65 11/07/16 13:59 O2 Sat by Pulse Oximetry (%) 100 11/07/16 01:51 HENT: Yes: WNL Neck: Yes: Supple Cardiovascular: Yes: Regular Rate and Rhythm Respiratory: Yes: CTA Bilaterally Gastrointestinal: Yes: Soft, Hernia (Reducible right inguinal hernia) Neurological: Yes: Alert, Oriented Labs: CBC, BMP 11/07/16 06:35 11/07/16 06:35 Imaging - Results Cat Scan: Report Reviewed, Image Reviewed Problem List - Problems (1) Inguinal hernia of right side with obstruction Code(s): K40.30 - UNIL INGUINAL HERNIA, W OBST, W/O GANGR, NOT SPCF RECUR Assessment/Plan Reducible right inguinal hernia No abdominal pain Recommended hernia belt until surgically repaired gave number for office for follow up Will repair electively Can have regular diet and discharge home from surgical standpoint Thank you
== END 2016-11-07 17:08 | disposition home or self-care (01) | DRG 395 ==
LOC: SUPCPDRO 21:15 → JER 21:15 → JERBED 11-07 01:42 → UNDOADMOB 11-07 01:51 → OBSVTOIN 11-07 02:21 → J7W 11-07 03:48
PROVIDERS: ADMIT Internal Medicine; ATTEND Internal Medicine
DX: K40.30 Unilateral inguinal hernia, with obstruction, without gangrene, not specified as recurrent (principal); R73.03 Prediabetes; Z98.84 Bariatric surgery status; E03.9 Hypothyroidism, unspecified
CPT/HCPCS: 36415; 71010-TC; 74177-TC; 80053; 81003; 83036; 83605; 83690; 83735; 84100; 84443; 84703; 85025; 85610; 85730; 87086; 87186; 93005; 93010; 97116-GP; 97161-GP; 99284-25; G0378

== ENCOUNTER 2018-10-14 08:50 | Emergency (ER) | payer OTHER ==
[2018-10-14 08:59] VITALS: BP 133/80; PULSE 77; TEMP 98.2; BMI 62.4
[2018-10-14] MEDS ORDERED: KETOROLAC TROMETHAMINE 60 MG/2 ML VIAL IM ONE (09:27)
[2018-10-14] MEDS ORDERED: KETOROLAC TROMETHAMINE 60 MG/2 ML VIAL ONE (09:35)
--- NOTE | 2018-10-14 10:58 | PDOC ---
History of Present Illness - General Chief Complaint: Pain Stated Complaint: RT LEG PAIN Time Seen by Provider: 10/14/18 09:10 History Source: Patient Exam Limitations: No Limitations - History of Present Illness Initial Comments: 10/14/18 10:57 62-year-old female presents the emergency room with complaints of right leg pain worsen in the knee area upon awakening this morning. Patient states pain begins in her knee and radiates to her quadriceps causing her difficulty bearing weight and ambulating. Patient denies history of arthritis, knee surgery clotting disorders, recent injury or recent surgery. Timing/Duration: other Severity: mild Associated Symptoms: reports: denies symptoms Past History - Travel Traveled outside of the country in the last 30 days: No Close contact w/someone who was outside of country & ill: No - Past Medical History Allergies/Adverse Reactions: Allergies Allergy/AdvReac Type Severity Reaction Status Date / Time No Known Allergies Allergy Verified 10/14/18 08:59 Home Medications: Ambulatory Orders Levothyroxine [Synthroid -] 50 mcg PO DAILY 01/01/16 Anemia: No Asthma: No Cancer: No Cardiac Disorders: No CVA: No COPD: No CHF: No Dementia: No Diabetes: Yes GI Disorders: No Disorders: No HTN: No Hypercholesterolemia: No Liver Disease: No Seizures: No Thyroid Disease: Yes (hypo) - Surgical History Abdominal Surgery: Yes ([facility]) Appendectomy: No Cardiac Surgery: No Cholecystectomy: No Lung Surgery: No Neurologic Surgery: No Orthopedic Surgery: No - Immunization History Immunization Up to Date: Yes - Suicide/Smoking/Psychosocial Hx Smoking History: Never smoked Have you smoked in the past 12 months: No Information on smoking cessation initiated: No Hx Alcohol Use: No Drug/Substance Use Hx: No Substance Use Type: None Hx Substance Use Treatment: No Patient Lives Alone: No Lives with/in: spouse/SO Review of Systems - Review of Systems Able to Perform ROS?: No Is the patient limited French proficient: No Constitutional: No: Symptoms Reported HEENTM: No: Symptoms Reported Respiratory: No: Symptoms reported Cardiac (ROS): No: Symptoms Reported Musculoskeletal: Yes: Joint Pain (right knee ), Muscle Pain (right quadricep) Integumentary: No: Symptoms Reported Neurological: No: Symptoms reported, Numbness, Paresthesia, Tingling, Weakness *Physical Exam - Vital Signs Last Vital Signs Temp Pulse Resp BP Pulse Ox 98.2 F 77 16 133/80 100 10/14/18 08:56 10/14/18 08:56 10/14/18 08:56 10/14/18 08:56 10/14/18 08:56 - Physical Exam General Appearance: Yes: Nourished, Appropriately Dressed. No: Apparent Distress HEENT: positive: EOMI. negative: Pale Conjunctivae Neck: positive: Supple. negative: Decreased range of motion Respiratory/Chest: positive: Lungs Clear, Normal Breath Sounds. negative: Respiratory Distress, Accessory Muscle Use Cardiovascular: positive: Regular Rhythm, Regular Rate. negative: Murmur Gastrointestinal/Abdominal: positive: Soft. negative: Tenderness Extremity: positive: Normal Capillary Refill, Tender, Swelling (distal aspect of the anterior right patella). negative: Normal Range of Motion (unable to flex greater than 110 degrees secondary to discomfort) Integumentary: positive: Normal Color, Warm, Moist, Swelling (anterior aspect of right patella) Neurologic: positive: Normal Mood/Affect, Motor Strength 5/5 (right straight leg raise) Moderate Sedation - Procedure Monitoring Vital Signs: Procedure Monitoring Vital Signs Temperature 98.2 F 10/14/18 08:56 Pulse Rate 77 10/14/18 08:56 Respiratory Rate 16 10/14/18 08:56 Blood Pressure 133/80 10/14/18 08:56 O2 Sat by Pulse Oximetry (%) 100 10/14/18 08:56 ED Treatment Course - RADIOLOGY Radiology Studies Ordered: Category Date Time Status KNEE 3 POS-RIGHT [RAD] Stat Radiology 10/14/18 09:27 Ordered DUPLEX VASCUL US-1 LEG [US] Stat Ultrasound 10/14/18 09:27 Taken - Medications Given in the ED: ED Medications Discontinued Medications Generic Name Dose Route Start Last Admin Trade Name Freq PRN Reason Stop Dose Admin Ketorolac Tromethamine 60 mg 10/14/18 09:27 10/14/18 09:46 Toradol Injection - IM 10/14/18 09:28 60 mg ONCE ONE Administration Medical Decision Making - Medical Decision Making 10/14/18 11:00 Chief complaint: Right leg right knee pain worsened with movement since yesterday. Patient took nothing for the above. Exam: Noted diffuse swelling and tenderness over the distal aspect of right patella. No erythema no crepitus . no deformity negative Homans or calf tenderness Plan: Toradol IM right knee x-ray and ultrasound of the right lower extremity to rule out DVT 10/14/18 11:25 Ultrasound shows no evidence of DVT thrombose in the right lower extremity. [place] or cysts in the right popliteal fossa measuring 3.7 x 0.8 cm which may be causing discomfort. Pt states feeling better after toradol and is able to ambulate now with limp 10/14/18 12:07 X-ray shows arthritic changes, no sign of acute fracture or sign of blastic or lytic lesions. Swelling, foreign body or soft tissue air is not seen. Patient will be given A knee immobilizer and discharged home to follow up with orthopedist. Patient also be given a prescription for Motrin *DC/Admit/Observation/Transfer Diagnosis at time of Disposition: Bakers cyst, Arthritis of knee - Discharge Dispostion Disposition: HOME Condition at time of disposition: Improved - Referrals Referrals: Sean Heaton MD [Primary Care Provider] - Leobardo Milan MD [Staff Physician] - - Patient Instructions Printed Discharge Instructions: DI for Mahoney's Cyst Additional Instructions: Apply warm soaks to the affected area. may provide gentle massage to the area. Please take Motrin 600 mg as needed for discomfort and follow up with referred orthopedist. - Post Discharge Activity
== END 2018-10-14 12:25 | disposition home or self-care (01) ==
LOC: JER 08:50
PROC: 3E0233Z Introduction of Anti-inflammatory into Muscle, Percutaneous Approach (ICD-10-PCS; principal; 2018-10-14)
DX: M71.21 Synovial cyst of popliteal space [Baker], right knee (principal); M13.861 Other specified arthritis, right knee; E03.9 Hypothyroidism, unspecified; E11.9 Type 2 diabetes mellitus without complications
CPT/HCPCS: 73562-TC-RT-FY; 93971-TC; 99282-25